=== PATIENT | male | born 1965 | race Caucasian/White ===

== ENCOUNTER 2019-07-25 19:35 | Emergency (ER) | payer MEDICAID, OTHER ==
[~2019-07-25] VITALS: Ht 175.3 cm; Wt 68.0 kg
[~2019-07-25 19:35] MED LIST: BUPR300T53 PO; HYDR-3965 PO; NORCO10T PO
--- NOTE | 2019-07-25 21:43 | NUR ---
PT REFUSED LAB DRAW 45 MIN AGO PER OPENER TENDERMATT. ESPINOZA , DENTAL LAB TECHNICIAN AWARE. PT AWAITING ER PROVIDER.
[2019-07-25] MEDS ORDERED: LIDOcaine 1% W/epiNEPHrine 1:200,000 10ml vial IJ ONE (22:05)
[2019-07-25] MEDS ORDERED: SULF1TAB49 PO (22:58)
[2019-07-25] MEDS ORDERED: CEPH500C5 PO (22:58)
--- NOTE | 2019-07-25 22:59 | NUR ---
pt moved from [facility] 10 to bed 8 for i&d. pt still refusing any blood or urine lab work but will allow dr. mejia to i&d abscess. He reprots that he is on a pain contract for his percocet with his PCP and does not want them to find out that he is here for this.
[2019-07-25 23:18] VITALS: BP 132/65
== END 2019-07-25 23:18 | disposition home or self-care (01) ==
LOC: ER 19:35
DX: L02.414 Cutaneous abscess of left upper limb (principal); G89.29 Other chronic pain; F15.90 Other stimulant use, unspecified, uncomplicated; Z79.899 Other long term (current) drug therapy
CPT/HCPCS: 10060; 71045; 99283

== ENCOUNTER 2019-11-12 22:35 | Emergency (ER) | payer MEDICAID, OTHER ==
[~2019-11-12] VITALS: Ht 175.3 cm; Wt 75.0 kg
[2019-11-12] MEDS ORDERED: CefTRIAXone 250MG IM Kit w/LIDOcaine IM ONE (22:45)
[2019-11-12] MEDS ORDERED: azithromycin 250mg tablet PO ONE (22:45)
[2019-11-12 23:32] LABS: CLARITY,URINE CLOUDY (Clear); COLOR,URINE YELLOW (Yellow); GLUCOSE, URINE NEGATIVE (Neg); KETONES,URINE NEGATIVE (Neg); LEUKOCYTE ESTERASE ,URINE MODERATE (Neg); NITRITES, URINE NEGATIVE (Neg); OCCULT BLOOD,URINE MODERATE (Neg); PH,URINE 6.5 (4.8-8.0); PROTEIN,URINE NEGATIVE (Neg); UROBILINOGEN,URINE 0.2 E.U/dL (0.2-1.0)
[2019-11-12 23:47] LABS: UA COLLECTION TYPE CLN CATCH MIDSTREAM
[2019-11-12 23:50] LABS: BACTERIA,URINE FEW /HPF (Neg); MUCUS STRANDS FEW /LPF (Neg); RBC,URINE 0-2 /HPF (0-2); SQUAMOUS EPITHELIAL CELL,UR FEW /LPF (FEW); WBC,URINE TNTC /HPF (0-4)
[2019-11-12 23:51] LABS: SPERM FEW /HPF (NEGATIVE)
[2019-11-12] MEDS ORDERED: DOXY100C76 PO (23:53)
[2019-11-13 00:07] VITALS: BP 144/88
--- NOTE | 2019-11-13 15:46 | NUR ---
PT WAS CALLED AND MSG LEFT TO CALL THE ER REGARDING HIS VISIT YESTERDAY. PT LEFT WITHOUT RECEIVING A RX FOR DOXYCYCLING AND REQUESTED A RETURN CALL SO THE RX MAY BE CALLED INTO HIS PHARMACY [facility].
== END 2019-11-13 00:08 | disposition home or self-care (01) ==
LOC: ER 22:35
DX: A64 Unspecified sexually transmitted disease (principal); N39.0 Urinary tract infection, site not specified; G89.29 Other chronic pain; F15.90 Other stimulant use, unspecified, uncomplicated; Z79.2 Long term (current) use of antibiotics; Z79.899 Other long term (current) drug therapy
CPT/HCPCS: 36415; 81001; 87088; 87491; 87591; 96372; 99283; J0696

== ENCOUNTER 2021-04-06 07:01 | Emergency (ER) | payer MEDICAID, OTHER ==
[~2021-04-06] VITALS: Ht 175.3 cm; Wt 74.7 kg
[2021-04-06 07:29] VITALS: BP 130/89
[2021-04-06] MEDS ORDERED: CLIN-97 PO (07:37)
[2021-04-06] MEDS ORDERED: clindamycin 150mg capsule PO ONE (07:40)
[2021-04-06] MEDS ORDERED: clindamycin 150mg capsule PO SCH (07:40)
== END 2021-04-06 07:49 | disposition home or self-care (01) ==
LOC: ER 07:02
DX: L03.116 Cellulitis of left lower limb (principal); G89.29 Other chronic pain; F15.90 Other stimulant use, unspecified, uncomplicated; Z79.2 Long term (current) use of antibiotics; Z79.899 Other long term (current) drug therapy
CPT/HCPCS: 99283

== ENCOUNTER 2021-07-03 04:27 | Inpatient (IN) | payer MEDICAID, OTHER ==
[~2021-07-03] VITALS: Ht 172.7 cm; Wt 68.2 kg
[~2021-07-03 04:27] MED LIST changes: +CLIN-97 PO
[2021-07-03] MEDS ORDERED: metoclopramide 5 mg/ml inj IM ONE (04:35)
[2021-07-03] MEDS ORDERED: diphenhydrAMINE 25mg capsule PO ONE (04:35)
[2021-07-03] MEDS ORDERED: diphenhydrAMINE 50 mg/ml inj IV ONE (04:40)
[2021-07-03] MEDS ORDERED: normal saline 1000ml 1,000 ML IV ONE (04:40)
[2021-07-03] MEDS ORDERED: metoclopramide 5 mg/ml inj IV ONE (04:40)
[2021-07-03 05:08] LABS: ALBUMIN 3.7 G/DL (3.4-5.0); ANION GAP 11 (8-16); BLOOD UREA NITROGEN 14 MG/DL (7-18); BUN/CREATININE RATIO 12.8 (5.4-32.0); CALCIUM 8.9 MG/DL (8.5-10.1); CHLORIDE 93 MMOL/L (99-107); CREATININE 1.09 MG/DL (0.60-1.10); GLUCOSE 112 MG/DL (70-104); POTASSIUM 3.2 MMOL/L (3.5-5.1); SODIUM 132 MMOL/L (135-145); TOTAL CARBON DIOXIDE 28.3 MMOL/L (24-32); eGFR 69 ML/MIN
[2021-07-03 05:10] LABS: BASOPHILS # (AUTO) 0.1 X10'3 (0-0.2); BASOPHILS % (AUTO) 0.4 % (0-1); EOSINOPHILS % (AUTO) 0.1 % (0-6); HEMATOCRIT 40.9 % (42.0-52.0); HEMOGLOBIN 14.2 g/dl (14.0-17.9); LYMPHOCYTES # (AUTO) 0.6 X10'3 (1.1-4.8); LYMPHOCYTES % (AUTO) 4.6 % (21-51); MEAN CORPUSCULAR HEMOGLOBIN 32.8 PG (27.0-31.0); MEAN CORPUSCULAR HGB CONC 34.6 g/dL (33.0-36.5); MEAN CORPUSCULAR VOLUME 94.6 FL (78-98); MEAN PLATELET VOLUME 6.2 FL (7.4-10.4); MONOCYTES # (AUTO) 0.9 X10'3 (0-0.9); MONOCYTES % (AUTO) 6.9 % (2-12); NEUTROPHILS # (AUTO) 11.7 X10'3 (1.8-7.7); PLATELET COUNT 331 X10'3 (140-440); RED BLOOD COUNT 4.32 X10'6 (4.70-6.10); RED CELL DISTRIBUTION WIDTH 13.3 % (11.5-14.5); WHITE BLOOD COUNT 13.3 X10'3 (4.5-11.0)
[2021-07-03 05:10] LABS: URINE AMPHETAMINE SCREEN POSITIVE (Neg); URINE BARBITUATE SCREEN NEGATIVE (Neg); URINE BENZODIAZEPINES SCREEN NEGATIVE (Neg); URINE CANNABINOID SCREEN NEGATIVE (Neg); URINE COCAINE SCREEN NEGATIVE (Neg); URINE METHADONE SCREEN NEGATIVE (Neg); URINE OPIATE SCREEN NEGATIVE (Neg); URINE PHENCYCLIDINE SCREEN NEGATIVE (Neg)
[2021-07-03] MEDS ORDERED: LORazepam 2 mg/ml vial IV ONE (05:15)
[2021-07-03] MEDS ORDERED: morphine 4 MG/ML inj SYRINge IV ONE (05:35)
[2021-07-03] MEDS ORDERED: normal saline 1000ML IV soln IV ONE (06:20)
[2021-07-03] MEDS ORDERED: CefTRIAXone 2gm/D5W 50ml BAG 50 ML IV ONE (06:20)
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
[2021-07-03] MEDS: normal saline 1000ml 1,000 ML IV SCH ×2 (10:25→22:35)
[2021-07-03] MEDS ORDERED: magnesium 2GM in 50ml NS 50 ML IV PRN (10:25)
[2021-07-03] MEDS ORDERED: acetaminophen 325mg tablet PO PRN (10:25)
[2021-07-03] MEDS ORDERED: magnesium 4gm in 100ml NS 100 ML IV PRN (10:25)
[2021-07-03] MEDS ORDERED: potassium CL 10mEq/100ml bag 100 ML IV PRN (10:25)
[2021-07-03] MEDS ORDERED: magnesium Cl slow-release 64mg tablet PO PRN (10:25)
[2021-07-03] MEDS ORDERED: ondansetron/PF 4mg/2ml inj IV PRN (10:25)
[2021-07-03] MEDS ORDERED: potassium Cl 20 mEq SR tablet PO PRN (10:25)
[2021-07-03 11:16] LABS: MAGNESIUM 1.3 MG/DL (1.5-2.4); POTASSIUM 3.2 MMOL/L (3.5-5.1)
[2021-07-03] MEDS ORDERED: NO HOME MEDS (12:48)
[2021-07-03 13:01] LABS: MAGNESIUM 1.5 MG/DL (1.5-2.4)
[2021-07-03] MEDS ORDERED: pneumococcal 23-VAL P-sac vacc 25 mcg/0.5ml vial IMVAC ONE (16:48)
[2021-07-03] MEDS ORDERED: FLU VACC QS2021-22(6MOS UP)/PF 60 MCG/0.5 ML SYRINGE IM ONE (16:50)
[2021-07-03 18:00] VITALS: BP 126/75
--- NOTE | 2021-07-03 18:34 | NUR ---
Problems reprioritized. Patient report given, questions answered & plan of care reviewed with Butch MARROQUIN.
--- NOTE | 2021-07-03 18:46 | NUR ---
Patient in room ED 5. I have received report from CARA Dickinson and had the opportunity to ask questions and assume patient care.
[2021-07-03] MEDS: K and/or MAG REPLACEMENT MC SCH (20:00)
[2021-07-03 22:00] VITALS: BP 162/76
[2021-07-03] MEDS: docusate sod 100mg capsule PO SCH (22:05)
[2021-07-04 06:00] VITALS: BP 107/67
[2021-07-04 07:03] LABS: BASOPHILS # (AUTO) 0.1 X10'3 (0-0.2); BASOPHILS % (AUTO) 0.6 % (0-1); EOSINOPHILS % (AUTO) 0.3 % (0-6); HEMATOCRIT 35.6 % (42.0-52.0); HEMOGLOBIN 12.3 g/dl (14.0-17.9); LYMPHOCYTES # (AUTO) 1.8 X10'3 (1.1-4.8); LYMPHOCYTES % (AUTO) 11.4 % (21-51); MEAN CORPUSCULAR HGB CONC 34.5 g/dL (33.0-36.5); MEAN CORPUSCULAR VOLUME 95.7 FL (78-98); MEAN PLATELET VOLUME 6.9 FL (7.4-10.4); MONOCYTES # (AUTO) 0.7 X10'3 (0-0.9); MONOCYTES % (AUTO) 4.5 % (2-12); NEUTROPHILS # (AUTO) 13.1 X10'3 (1.8-7.7); NEUTROPHILS % (AUTO) 83.2 % (42-75); PLATELET COUNT 268 X10'3 (140-440); RED BLOOD COUNT 3.71 X10'6 (4.70-6.10); RED CELL DISTRIBUTION WIDTH 13.3 % (11.5-14.5); WHITE BLOOD COUNT 15.7 X10'3 (4.5-11.0)
[2021-07-04 07:22] LABS: ALBUMIN 2.3 G/DL (3.4-5.0); ANION GAP 6 (8-16); BLOOD UREA NITROGEN 19 MG/DL (7-18); BUN/CREATININE RATIO 17.9 (5.4-32.0); CALCIUM 8.2 MG/DL (8.5-10.1); CHLORIDE 98 MMOL/L (99-107); CREATININE 1.06 MG/DL (0.60-1.10); GLUCOSE 98 MG/DL (70-104); MAGNESIUM 1.7 MG/DL (1.5-2.4); POTASSIUM 3.2 MMOL/L (3.5-5.1); SODIUM 128 MMOL/L (135-145); TOTAL CARBON DIOXIDE 24.4 MMOL/L (24-32); eGFR 72 ML/MIN
[2021-07-04] MEDS: docusate sod 100mg capsule PO SCH ×2 (07:52→20:51)
[2021-07-04] MEDS: potassium Cl 20 mEq SR tablet PO PRN ×2 (07:52→11:51)
[2021-07-04] MEDS: normal saline 1000ml 1,000 ML IV SCH ×3 (07:53→21:07)
[2021-07-04] MEDS: K and/or MAG REPLACEMENT MC SCH ×2 (07:59→20:00)
[2021-07-04 11:00] VITALS: BP 104/68
[2021-07-04] MEDS: acetaminophen 325mg tablet PO PRN (11:50)
[2021-07-04] MEDS ORDERED: azithromycin/NS 500mg/250ml 250 ML IV ONE (12:40)
[2021-07-04] MEDS: CefTRIAXone/D5W-Rocephin 1gm 50 ML IV SCH (13:09)
--- NOTE | 2021-07-04 14:00 | NUR ---
pt very pleasant this shift. Voiding in urinal, adlib in room. Agreeable to current plan of care. will continue to monitor patient
[2021-07-04 15:00] VITALS: BP 106/68
--- NOTE | 2021-07-04 18:35 | NUR ---
Problems reprioritized. Patient report given, questions answered & plan of care reviewed with jackson cardoza.
--- NOTE | 2021-07-04 19:39 | NUR ---
PT IS IN BED WATCHING TV, A/OX3. RESP EVEN AND NONLABORED W/ EQUAL CHEST EXPANSION BILATERALLY ON RA. HEART SOUNDS NORMAL TO AUSCULTATION, S1/S2 NOTED. REMOTE TELEMETRY CONTINUED. CAPILLARY REFILL LESS THAN 3 SECONDS. RADIAL PULSES PALPABLE BILATERALLY. ALL ABD QUADRANTS NORMOACTIVE X4. ABD SOFT, NONTENDER TO TOUCH. PT URINATED CLEAR, YELLOW URINE W/O ODOR TO URINAL WHICH WAS EMPTIED. 22G IV TO (R) HAND INTACT, PATENT AND INFUSING NS @ 100ML/HR. NO S/S OF ACUTE PAIN/DISTRESS NOTED. WILL CONTINUE TO OBSERVE.
[2021-07-04 20:00] VITALS: BP 100/66
[2021-07-04] MEDS ORDERED: normal saline 1000ml 1,000 ML IV SCH (23:00)
[2021-07-05 02:00] VITALS: BP 109/61
[2021-07-05 06:00] VITALS: BP 105/69
--- NOTE | 2021-07-05 06:08 | NUR ---
Patient in room PCU 3012. I have received report from jackson cardoza and had the opportunity to ask questions and assume patient care.
[2021-07-05] MEDS: K and/or MAG REPLACEMENT MC SCH (08:00)
[2021-07-05] MEDS: docusate sod 100mg capsule PO SCH (08:00)
[2021-07-05] MEDS: acetaminophen 325mg tablet PO PRN (08:14)
[2021-07-05] MEDS: CefTRIAXone/D5W-Rocephin 1gm 50 ML IV SCH (08:15)
[2021-07-05 08:18] LABS: BASOPHILS # (AUTO) 0.1 X10'3 (0-0.2); BASOPHILS % (AUTO) 0.5 % (0-1); EOSINOPHILS # (AUTO) 0.3 X10'3 (0-0.9); EOSINOPHILS % (AUTO) 2.3 % (0-6); HEMATOCRIT 35.3 % (42.0-52.0); HEMOGLOBIN 12.2 g/dl (14.0-17.9); LYMPHOCYTES # (AUTO) 1.1 X10'3 (1.1-4.8); LYMPHOCYTES % (AUTO) 8.8 % (21-51); MEAN CORPUSCULAR HEMOGLOBIN 33.2 PG (27.0-31.0); MEAN CORPUSCULAR HGB CONC 34.7 g/dL (33.0-36.5); MEAN CORPUSCULAR VOLUME 95.8 FL (78-98); MONOCYTES # (AUTO) 0.7 X10'3 (0-0.9); MONOCYTES % (AUTO) 5.8 % (2-12); NEUTROPHILS # (AUTO) 10.2 X10'3 (1.8-7.7); NEUTROPHILS % (AUTO) 82.6 % (42-75); PLATELET COUNT 279 X10'3 (140-440); RED BLOOD COUNT 3.68 X10'6 (4.70-6.10); RED CELL DISTRIBUTION WIDTH 13.5 % (11.5-14.5); WHITE BLOOD COUNT 12.4 X10'3 (4.5-11.0)
[2021-07-05 08:51] LABS: ALBUMIN 2.3 G/DL (3.4-5.0); ANION GAP 8 (8-16); BLOOD UREA NITROGEN 20 MG/DL (7-18); BUN/CREATININE RATIO 22.5 (5.4-32.0); CALCIUM 8.2 MG/DL (8.5-10.1); CHLORIDE 101 MMOL/L (99-107); CREATININE 0.89 MG/DL (0.60-1.10); GLUCOSE 98 MG/DL (70-104); MAGNESIUM 1.9 MG/DL (1.5-2.4); POTASSIUM 3.7 MMOL/L (3.5-5.1); SODIUM 134 MMOL/L (135-145); TOTAL CARBON DIOXIDE 25.2 MMOL/L (24-32); eGFR 88 ML/MIN
[2021-07-05] MEDS ORDERED: LEVO500T90 PO (10:07)
[2021-07-05 11:00] VITALS: BP 99/71
--- NOTE | 2021-07-05 11:12 | NUR ---
patient states his ride for discharge is not available until 1300. pattern hand notified
[2021-07-05] MEDS: normal saline 1000ml 1,000 ML IV SCH (12:25)
--- NOTE | 2021-07-05 13:30 | NUR ---
Pt discharged at 1330. Pt discharged in stable condition. Belongings sent with patient. IV removed, tip intact, no complications. Pt educated on discharge follow up/instructions. Patient discharged in stable condition to home with friend
[2021-07-05] MEDS ORDERED: lactobacillus rhamnosus 10,000 MMU CELLS/CAPSULE PO SCH (20:00)
== END 2021-07-05 14:03 | disposition home or self-care (01) | DRG 720 ==
LOC: ER 04:28 → ED HOLD 10:26 → PCU 3S 18:15
PROVIDERS: ADMIT Internal Medicine; ATTEND Internal Medicine
DX: A41.9 Sepsis, unspecified organism (principal); G93.41 Metabolic encephalopathy; J18.9 Pneumonia, unspecified organism; E87.1 Hypo-osmolality and hyponatremia; T50.901A Poisoning by unspecified drugs, medicaments and biological substances, accidental (unintentional), initial encounter; F15.10 Other stimulant abuse, uncomplicated; E87.6 Hypokalemia; Z20.822 Contact with and (suspected) exposure to COVID-19; R94.31 Abnormal electrocardiogram [ECG] [EKG]; Y92.89 Other specified places as the place of occurrence of the external cause
CPT/HCPCS: 36415; 70450; 71045; 80048; 80305; 83605; 83735; 84132; 84145; 85025; 87040; 87081; 87635; 90732; 93005; 99285; C9803; G0378; J0456; J0696; J1200; J2060; J2270; J2765; J7030

== ENCOUNTER 2024-12-21 21:00 | Emergency (ER) | payer MEDICAID, OTHER ==
[~2024-12-21] VITALS: Ht 175.3 cm; Wt 70.5 kg
[~2024-12-21 21:00] MED LIST changes: -BUPR300T53 PO; -CLIN-97 PO; -HYDR-3965 PO; +NO HOME MEDS; -NORCO10T PO
[2024-12-21 21:33] VITALS: BP 103/71; PULSE 91; O2SAT 98
--- NOTE | 2024-12-21 22:05 | Physician Documentation ---
History of Present Illness ~ Chief Complaint: Ear Pain Stated Complaint: EAR PAIN Time Seen by MD: 21:55 Primary Medical Doctor: None HPI This 59-year-old male presents with left ear pain and right ear blockage. Patient reports subjective fever yesterday. Patient reports he suspects a bug got into his left ear several days ago as the pain began suddenly. Medication Reconciliation Allergies: Coded Allergies: No Known Allergies (Unverified , 12/21/24) Scheduled Amox Tr/Potassium Clavulanate 875/125 MG (Augmentin 875/125 MG), 1 TAB PO Q12H Ciprofloxacin Hcl/Hc Otic Susp* (Cipro Hc Otic Susp*), 3 DROP RIGHT EAR Q12H Miscellaneous Medications Home Med List (No Home Medications), (Reported) Past Medical History Past Medical History: Chronic Pain Past Surgical History: no surgical history Alcohol Use: None Drug Use: methamphetamine Review of Systems ROS Left ear pain as stated above in the HPI, otherwise all systems are reviewed and negative. Physical Exam Vital Signs: Temperature: 98.0, Source: Temporal, Heart Rate: 91, Respiratory Rate: 16, BP: 103/71, Pulse Oximetry: 98, Weight: 70.450 Oxygen Flow Rate: 0 Physical Exam VITALS: Reviewed and as above. GENERAL: Alert, nontoxic appearing, no apparent distress. HEENT: Right auditory canal severe cerumen impaction, left auditory canal exquisitely tender and filled with purulent material unable to visualize either tympanic membrane. No mastoid tenderness RESPIRATORY: No increased work of breathing, no respiratory distress, speaking in full clear sentences Procedures Ear Procedure Ear Procedure : Ear Location: Left Procedure: curette Foreign Body/Cerumen Removal: other (Small amount of purulent material removed, no foreign body identified), unsuccessful Reexamination after Removal: external canal abrasion, blood in external canal, other (Purulent discharge) Tolerated Procedure Well?: yes, no complications Procedure Note And ear curette was used to remove some of the purulent material in attempt to visualize tympanic membrane however all purulent material was unable to be removed in tympanic membrane was not able to be fully visualized. Progress Results/Orders Results/Orders Completed Orders - EREN MONTOYA Ciprofloxacin/Hct Otic Susp (Cipro Hc Ot (12/21/24 22:25) Ketorolac Trometh 15mg/Ml Vial (Toradol (12/21/24 22:25) Amox Tr/Potassium Clavulanate (Augmentin (12/21/24 22:25) Medications Received in ER Medications (Trade) Dose Ordered Sig/Cecilia Route PRN Reason Start Time Stop Time Status Last Admin Dose Admin (Toradol injection) 15 mg ONCE ONCE IM 12/21/24 22:25 12/21/24 22:27 DC 12/21/24 22:38 15 MG (Augmentin 875-125mg tablet) 1 tab ONCE ONCE PO 12/21/24 22:25 12/21/24 22:27 DC 12/21/24 22:37 1 TAB Vital Signs 12/21/24 12/21/24 12/21/24 21:33 22:38 22:48 Temp 98.0 98.0 Pulse 91 Resp 16 18 B/P (MAP) 103/71 Pulse Ox 98 O2 Flow Rate 0 Medical Decision Making Findings This 59-year-old male presented with left ear pain with physical exam demonstrating purulent discharge and erythema in the auditory canal, due to purulent discharge was unable to visualize the tympanic membrane however I do suspect no otitis media based on patient's symptoms along with a purulent discharge suggesting perforation of the tympanic membrane in discharge into the auditory canal. Remainder of physical exam was benign. Vital signs stable. Is reassuring patient is not have mastoid tenderness to suggest mastoiditis or other deep space infection. Patient is appropriate for outpatient follow up. We attempted to irrigate patient's right ear for cerumen impaction however due to resource of time constraints we are unable to completely dissect ear, patient given home care instructions and instructed to return to either primary care or here after prepping his ear with ear wax softening drops for cerumen removal. Patient discharged with prescriptions for oral and otic antibiotics. Patient provided return to care precautions which he verbalized understanding of. Ear Diff. Dx: Considerations: Include: Cerumen impaction, Foreign body, Otitis externa, Otitis media, Perforation, Referred pain-dental, Referred pain- pharyngitis, Referred pain-sinusitis, Referred pain-TMJ syn., Tympanic Membrane Injury Departure Disposition: HOME / SELF CARE / HOMELESS Impression: Primary Impression: Otitis externa Qualified Codes: H60.502 - Unspecified acute noninfective otitis externa, left ear Additional Impressions: Otitis media Qualified Codes: H66.90 - Otitis media, unspecified, unspecified ear Cerumen impaction Qualified Codes: H61.21 - Impacted cerumen, right ear Condition: Improved Discharge Instructions: Otitis Externa, [id number], Otitis Media, Adult Additional Instructions: Please use the antibiotic drops and take the antibiotics as prescribed. Please follow up with your primary care provider in the next few days. Please return to the emergency department for any new or worsening concerning symptoms. Referrals: NO PRIMARY CARE PROVIDER (PCP) Prescriptions Ciprofloxacin Hcl/Hc Otic Susp* (Cipro Hc Otic Susp*) 10 Ml Bottle 3 DROP RIGHT EAR Q12H for 7 Days, #10 ML Prov: EREN MONTOYA 12/21/24 Amox Tr/Potassium Clavulanate 875/125 MG (Augmentin 875/125 MG) 875 Mg-125 Mg Tablet 1 TAB PO Q12H for 7 Days, #14 TAB Prov: EREN MONTOYA 12/21/24 Education Educated: Patient Educated regarding: diagnosis, treatment, prognosis, need for follow up Signature Scribe Signature: No scribe Attestation: The note accurately reflects work and decisions made by me.ROSALES Garcia 12/22/24 01:33 EREN MONOTYA Dec 21, 2024 22:05
[2024-12-21] MEDS ORDERED: Cipro HC otic suspension 10ML bottle LEFT EAR ONE (22:25)
[2024-12-21] MEDS ORDERED: CIPR10DR RIGHT EAR (22:34)
[2024-12-21] MEDS ORDERED: AMOX-580 PO (22:34)
[2024-12-21] MEDS: amox tr/potassium clavulanate 875/125mg TAB PO ONE (22:37)
[2024-12-21 22:38] VITALS: RESP 18
[2024-12-21] MEDS: ketorolac trometh 15mg/ml vial 15 MG/ML ML IM ONE (22:38)
[2024-12-21 22:48] VITALS: TEMP 98
== END 2024-12-21 22:49 | disposition home or self-care (01) ==
LOC: ER 21:01
DX: H60.92 Unspecified otitis externa, left ear (principal); H66.92 Otitis media, unspecified, left ear; H61.21 Impacted cerumen, right ear; F15.90 Other stimulant use, unspecified, uncomplicated
CPT/HCPCS: 69210; 96372; 99284; J1885

== ENCOUNTER 2025-01-21 19:29 | Emergency (ER) | payer MEDICAID, OTHER ==
[~2025-01-21] VITALS: Ht 175.3 cm; Wt 53.3 kg
[2025-01-21 19:36] VITALS: BP 113/88; PULSE 102; O2SAT 98
[2025-01-21] MEDS: HYDROcodone/acetaminophen 10/325mg tab PO ONE (20:20)
[2025-01-21 22:03] VITALS: RESP 18
[2025-01-21] MEDS: ketorolac trometh 15mg/ml vial 15 MG/ML ML IM ONE (22:03)
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
[2025-01-21] MEDS ORDERED: HYDR-3965 PO (22:04)
[2025-01-21] MEDS: sulfamethoxazole/trimethoprim DS (800/160mg) tablet PO ONE (22:04)
[2025-01-21] MEDS: TETanus/Pertussis (Acell)/Diphther VAC/PF (Tdap-Adult) 0.5ml syringe IMVAC ONE (22:04)
[2025-01-21] MEDS ORDERED: NALO4SPR BOTHNARES (22:04)
[2025-01-21] MEDS ORDERED: IBUP-1986 PO (22:04)
[2025-01-21 22:10] VITALS: TEMP 96.8
== END 2025-01-21 22:24 | disposition home or self-care (01) ==
LOC: ER 19:30
DX: T24.232A Burn of second degree of left lower leg, initial encounter (principal); F15.90 Other stimulant use, unspecified, uncomplicated; Z79.899 Other long term (current) drug therapy; X08.8XXA Exposure to other specified smoke, fire and flames, initial encounter; Y93.89 Activity, other specified; Y92.89 Other specified places as the place of occurrence of the external cause; Y99.8 Other external cause status
CPT/HCPCS: 16000; 90471; 90715; 96372; 99284; A6223; J1885; A6258; A6446